=== PATIENT | female | born 1995 | race Caucasian/White ===

== ENCOUNTER 2022-12-23 07:17 | Outpatient (CLI) | payer OTHER, SELFPAY | END 2022-12-23 07:18 | disposition home or self-care (01) | PROVIDERS: Visit Provider Physician Assistant Medical | DX: N39.0 Urinary tract infection, site not specified (principal); N30.00 Acute cystitis without hematuria | CPT/HCPCS: 87086; 87186 ==

== ENCOUNTER 2023-02-15 08:48 | Outpatient (CLI) | payer OTHER, SELFPAY | END 2023-02-15 08:49 | disposition home or self-care (01) | LOC: NFLDREF 02-19 11:55 | PROVIDERS: PCP Physician Assistant Medical; Visit Provider Physician Assistant Medical | DX: R30.0 Dysuria (principal); N39.0 Urinary tract infection, site not specified | CPT/HCPCS: 87086 ==

== ENCOUNTER 2023-04-09 09:33 | Outpatient (CLI) | payer OTHER, SELFPAY ==
[2023-04-09 22:22] LABS: Chlamydia DNA Amplified* NOT DETECTED (No Detected); GC DNA Amplified* NOT DETECTED (No Detected)
== END 2023-04-09 09:34 | disposition home or self-care (01) ==
PROVIDERS: Visit Provider Obstetrics & Gynecology
DX: Z11.3 Encounter for screening for infections with a predominantly sexual mode of transmission (principal)
CPT/HCPCS: 86592; 86703; 86706; 86803; 87086; 87340; 87491; 87591

== ENCOUNTER 2024-07-08 11:31 | Outpatient (CLI) | payer OTHER, SELFPAY | END 2024-07-08 11:32 | disposition home or self-care (01) | LOC: NFLDREF 07-11 03:32 | PROVIDERS: Visit Provider Nurse Practitioner Family | DX: R82.90 Unspecified abnormal findings in urine (principal); N36.8 Other specified disorders of urethra; Z11.3 Encounter for screening for infections with a predominantly sexual mode of transmission | CPT/HCPCS: 87086; 87491; 87591 ==